=== PATIENT | female | born 1990 | race Caucasian/White ===

== ENCOUNTER 2017-01-30 23:58 | Emergency (ER) | payer SELFPAY ==
[~2017-01-30] VITALS: Ht 172.7 cm; Wt 123.4 kg
[2017-01-31 00:40] VITALS: BP 131/72
[2017-01-31 00:57] LABS: BILIRUBIN,URINE NEGATIVE (NEG); GLUCOSE,URINE NEGATIVE (NEG); NITRITE,URINE NEGATIVE (NEG); PROTEIN,URINE NEGATIVE (NEG-TRACE); UROBILINOGEN,URINE 0.2 mg/dL (0.2 mg/dL)
[2017-01-31 01:04] LABS: BACTERIA,URINE 0 /HPF (0-FEW); RBC,URINE 0 /HPF (0-2); SQUAMOUS EPITHELIAL CELL,UR FEW /LPF; WBC,URINE 0 /HPF (0-4)
--- NOTE | 2017-01-31 01:43 | PHYS DOC ---
Adult General Chief Complaint Chief Complaint: ABDOMINAL PAIN HPI HPI Patient is a 26 year old female presenting to the emergency department for evaluation of abdominal pain that has been going on for approximately one month. She says it is upper abdominal pain achy worse with certain positions and when she lays on her stomach. She denies any fevers chills nausea vomiting dysuria hematuria vaginal bleeding or vaginal discharge. Patient delivered a baby 6 months ago and had an Implanon put in her left arm and says she hasn't had a period since that was placed. She is concerned that she is again. Review of Systems Review of Systems Constitutional: Denies fever or chills [] Respiratory: Denies cough or shortness of breath [] Cardiovascular: No additional information not addressed in HPI [] GI: + abdominal pain. No nausea, vomiting, bloody stools or diarrhea [] : Denies dysuria or hematuria [] Musculoskeletal: Denies back pain or joint pain [] Physical Exam Physical Exam Constitutional: Well developed, well nourished, no acute distress, non-toxic appearance. [] Cardiovascular:Heart rate regular rhythm, no murmur [] Lungs & Thorax: Bilateral breath sounds clear to auscultation [] Abdomen: Bowel sounds normal, soft, no tenderness, no masses, no pulsatile masses. [] Current Patient Data Vital Signs Vital Signs Date Time Temp Pulse Resp B/P (MAP) Pulse Ox O2 Delivery O2 Flow Rate FiO2 01/31/17 00:40 97.9 69 16 131/72 (91) 98 Room Air 97.9 Lab Values Laboratory Tests Test 01/30/17 23:50 01/31/17 00:43 POC Urine HCG, Qualitative Hcg negative (Negative) Urine Collection Type Unknown Urine Color Yellow Urine Clarity Cloudy Urine pH 6.0 Urine Specific Redig 1.010 Urine Protein Negative mg/dL (NEG-TRACE) Urine Glucose (UA) Negative mg/dL (NEG) Urine Ketones (Stick) Negative mg/dL (NEG) Urine Blood Negative (NEG) Urine Nitrite Negative (NEG) Urine Bilirubin Negative (NEG) Urine Urobilinogen Dipstick 0.2 mg/dL (0.2 mg/dL) Urine Leukocyte Esterase Negative (NEG) Urine RBC 0 /HPF (0-2) Urine WBC 0 /HPF (0-4) Urine Squamous Epithelial Cells Few /LPF Urine Bacteria 0 /HPF (0-FEW) EKG EKG [] Radiology/Procedures Radiology/Procedures [] Course & Med Decision Making Course & Med Decision Making Patient with nonspecific abdominal pain that has been going on for 1 month. Upper midline likely gastritis or possibly an ulcer. She has not tried anything for pain so of her labs are negative will likely be discharged on Prilosec. She is not breast-feeding currently. I'm fairly confident of control that she is on keeps her from having periods but will have her follow with her [employer] to see if there is some other hormonal issue going on. Patient walked out of the emergency department for her test came back. She admitted to the nurse that the only reason that she came here was for a test and did not want any further evaluation and treatment. Patient signed out AMA and walked out of the emergency department before I could speak to her. Dragon Disclaimer Dragon Disclaimer This electronic medical record was generated, in whole or in part, using a voice recognition dictation system. Departure Departure Impression: Primary Impression: Abdominal pain Disposition: 07 AGAINST MEDICAL ADVICE Condition: STABLE Referrals: NO PCP (PCP) Problem Qualifiers Primary Impression: Abdominal pain Abdominal location: epigastric Qualified Codes: R10.13 - Epigastric pain RENETTA STEWART DO Jan 31, 2017 01:43
== END 2017-01-31 01:50 | disposition left against medical advice (07) ==
LOC: ER 23:58
DX: R10.10 Upper abdominal pain, unspecified (principal)
CPT/HCPCS: 81001; 81025; 99283